=== PATIENT | female | born 1940 | race Caucasian/White ===

== ENCOUNTER → 2016-09-29 | Outpatient (CLI) | payer MEDICARE ==
[~2016-09-29] MED LIST: AMLO5TAB2 PO; IOHEXOL 180 MG/ML 10 ML VIAL. ONE; LISI40TA PO; METO25TA9 PO; OMEP40CA5 PO; PRAV80TA2 PO; PROM25TA10 PO; methylPREDNISolone ACETATE 40 MG/ML VIAL. ONE; methylPREDNISolone ACETATE 80 MG/ML VIAL. ONE
--- NOTE | 2016-09-29 23:58 | PAIN ---
DATE OF SERVICE: 09/29/2016 DIAGNOSES: Lumbar radiculopathy with lumbar degenerative disk disease and lumbar herniated disk. HISTORY OF PRESENT ILLNESS: The patient is a 76-year-old female who returns for followup status post lumbar epidural steroid injections x 2. The patient reports about 80% improvement overall after the last injection, still some right leg numbness, but the low back pain is almost completely gone. The patient reports that the leg has a constant tingling sensation and a burning sensation as well, only on the right side, mostly in the anterior lateral and medial aspect of the thigh, medial lower leg is cold to the ankle. The patient reports no new motor or sensory deficits, no new bowel or bladder incontinence, but still significant pain with standing, walking, changing positions, has not been awakening her from sleep at night, however, and although she is doing much better, she still has some significant pain and numbness in the right leg, again no new motor loss. PHYSICAL EXAMINATION: VITAL SIGNS: Today, the patient's blood pressure is 167/99, pulse ____, respirations 20, temperature 97.6 degrees Fahrenheit, weight is 123 pounds. GENERAL: The patient is awake, alert, oriented, appropriate, very pleasant demeanor. HEENT: Head shows normocephalic, atraumatic. Extraocular movements are intact, symmetrical. Oral cavity, mucous membranes are moist and pink. NECK: Shows anterior throat supple. CHEST: Shows normal on inspection. Breath sounds are clear to auscultation bilaterally. HEART: Shows S1 and S2 clear. ABDOMEN: Soft, nontender, nondistended. No palpable organomegaly is noted. No rebound or guarding demonstrated. BACK: Shows spine grossly midline. Lumbar paraspinous musculature shows some moderate tenderness with palpation, but normal lordotic curvature on inspection. No radiation of pain with palpation, normal muscle girth bilaterally. No tenderness over the sacrum or sacroiliac regions. The patient shows good rotation and motion both laterally as well as extension and flexion without exacerbation of pain in the lumbar spine. EXTREMITIES: Lower extremities show deep tendon reflexes 2+ in the patellar tendons, 1+ tendo calcaneus tendons are equal. Motor exam is strong with 5/5 dorsiflexion, extension, quadriceps and hamstring flexion and are symmetrical. Peripheral pulses are 1+ in the posterior tibial and dorsalis pedis pulses. No peripheral edema is noted. PLAN: Options were discussed with the patient. Patient's old chart was reviewed as her current medication regimen and updated. Current review of systems updated today as well. We will plan on a third lumbar epidural steroid injection with fluoroscopic guidance. Risks were again discussed including, but not limited to bleeding, infection, possibility of epidural hematoma and subsequent neurologic compromise, dural puncture, headaches, spinal cord and/or nerve damage, side effects of steroid medication and poor results regarding pain control. The patient understands and wishes to proceed. The patient will return to clinic in approximately 2 weeks for followup. She was counseled on her return appointment, activity level and side effects to be aware of. DIAGNOSIS: Lumbar radiculopathy with lumbar degenerative disk disease and lumbar herniated disk. PROCEDURE: Lumbar epidural steroid injection, translaminar approach at the L4-L5 level using C-arm fluoroscopic guidance under sterile prep and drape with local anesthesia. MEDICATIONS INJECTED: Depo-Medrol 120 mg plus 10 mL of preservative-free normal saline and 2 mL Isovue contrast. Condition is stable at discharge. The patient tolerated the procedure well, had no complications. RAYNA SINHA MD DR: ABILIO/osnido JOB#: [id number] / [id number]
== END ==
LOC: PNCL 10:02
PROVIDERS: ATTEND Anesthesiology
DX: M51.16 Intervertebral disc disorders with radiculopathy, lumbar region (principal)
CPT/HCPCS: 62323; J1030; J1040

== ENCOUNTER → 2017-07-12 | Outpatient (CLI) | payer MEDICARE ==
[~2017-07-12] MED LIST changes: +METO-239 PO; -METO25TA9 PO
--- NOTE | 2017-07-12 22:34 | PAIN ---
DATE OF SERVICE: 07/12/2017 DIAGNOSES: Lumbar radiculopathy with lumbar degenerative disk disease and lumbar herniated disk. HISTORY OF PRESENT ILLNESS: The patient is a 77-year-old female who returns for followup status post lumbar epidural steroid injections, last seen 09/29/2016. The patient did very well with about 80% improvement with her low back and bilateral lower extremity pain, right greater than left. The patient reports the pain began to return over the past 3-4 weeks, but that was doing very well as increased activity, greater ease and comfort without difficulty, sleeping well at night, now reports it is awaking her from sleep about 2-3 times. At night, she has to get out of bed or reposition and change positions. The patient also has significant pain across the low back, right side worse than the left into the lower extremity, mostly in the lateral anterior thigh and into the medial knee and lower leg on the right side, but only occasionally. The patient reports the pain is a 10 on a scale of 10 at its worst, 7 on average, is a 4 at its least, and is a 4 today. The patient reports it is becoming more constant, aching, burning, radiating and shooting. The patient reports no new motor or sensory deficits. No new bowel or bladder incontinence. PHYSICAL EXAMINATION: VITAL SIGNS: The patient's blood pressure 147/87, pulse 65, respirations 16, temperature 98.2 degrees Fahrenheit, height is 5 feet 7 inches, weight is 123 pounds. GENERAL: The patient is awake, alert, oriented, appropriate, very pleasant demeanor. HEENT: Shows normocephalic, atraumatic. Extraocular movements are intact and symmetrical. Oral cavity: Mucous membranes moist and pink. Dentition is intact. NECK: Shows anterior throat supple without palpable lymphadenopathy noted. Swallow reflex is symmetrical. CHEST: Shows normal on inspection. Breath sounds are clear to auscultation bilaterally. HEART: Shows S1 and S2 clear. ABDOMEN: Soft, nontender, nondistended. No palpable organomegaly. No rebound or guarding demonstrated. BACK: Shows spine grossly in the midline. Lumbar paraspinous musculature shows symmetrical on inspection. With palpation, shows some moderate tenderness in the middle and inferior aspect, slightly more on the right than the left, but without trigger points, without radiation or asymmetry. EXTREMITIES: Lower extremities show deep tendon reflexes 2+ in the patellar, 1+ tendo-calcaneus tendons, are equal. Motor exam is strong with 5/5 dorsiflexion, extension, quadriceps and hamstring flexion and are symmetrical. Peripheral pulses are 1+ posterior tibial bilaterally. No peripheral edema is noted. Options were discussed with the patient. The patient's old chart was reviewed as her current medication regimen and updated. Current review of systems is updated today as well and we will proceed with a lumbar epidural steroid injection today with fluoroscopic guidance. Risks were again discussed including, but not limited to bleeding, infection, possibility of epidural hematoma and subsequent neurologic compromise, dural puncture, headaches, spinal cord and/or nerve damage, side effects of steroid medication and poor results regarding pain control. The patient understands and wished to proceed. The patient will return to the clinic in approximately 2 weeks for followup, was counseled on return appointment, activity level and side effects to be aware of. DIAGNOSIS: Lumbar radiculopathy with lumbar degenerative disk disease, lumbar herniated disk. PROCEDURE: Lumbar epidural steroid injection in translaminar approach L4-L5 level using C-arm fluoroscopic guidance under sterile prep and drape using local anesthetic. Medication injected is a total of 120 mg of Depo-Medrol plus 10 mL of preservative-free normal saline and 2 mL of Isovue for contrast. CONDITION AT DISCHARGE: Stable. The patient tolerated procedure well, had no complications. RAYNA SINHA MD DR: ABILIO/sonido JOB#: [id number] / [id number]
== END | disposition home or self-care (01) ==
LOC: PNCL 09:47
PROVIDERS: ATTEND Anesthesiology
DX: M51.16 Intervertebral disc disorders with radiculopathy, lumbar region (principal); I10 Essential (primary) hypertension; M19.90 Unspecified osteoarthritis, unspecified site; Z98.41 Cataract extraction status, right eye; Z98.42 Cataract extraction status, left eye; Z87.891 Personal history of nicotine dependence; Z85.3 Personal history of malignant neoplasm of breast; Z90.710 Acquired absence of both cervix and uterus
CPT/HCPCS: 62323; J1030; J1040

== ENCOUNTER → 2017-07-26 | Outpatient (CLI) | payer MEDICARE ==
--- NOTE | 2017-07-26 18:53 | PAIN ---
DATE OF SERVICE: 07/26/2017 DIAGNOSES: Lumbar radiculopathy with lumbar degenerative disk disease and lumbar herniated disk. HISTORY OF PRESENT ILLNESS: The patient is a 77-year-old female who returns for a followup status post lumbar epidural steroid injection x 1. The patient reports about 75% improvement initially, but the pain is beginning to return after about 30% improvement in the low back and the bilateral lower extremities, mostly on the right side, anterior medial thigh, anterior lower leg into the knee with some numbness while sitting and across the low back as well, again more on the right side. The patient reports it is burning, cramping, aching with some numbness as well, but she has been increasing her daily activities with much greater ease and comfort initially, her last injection was on 07/12 over the past 2 weeks and has returned over the past few days. It is a 6 on a scale of 10 at its worst and on average and about a 4 at its least and is a 4 today. The patient reports no new motor or sensory deficits, no new bowel or bladder incontinence or other complaints. Reports it awakens her from sleep occasionally, but not every night. She sleeps about 3-4 hours at a time sporadically, but does not usually awaken from the pain in her back or leg. The patient reports no new changes. PHYSICAL EXAMINATION: VITAL SIGNS: The patient's blood pressure 163/90, pulse 75, respirations 16, temperature is 98.1 degrees Fahrenheit. Height is 5 feet 6 inches, weight is 122 pounds. GENERAL: The patient is awake, alert, oriented, appropriate, very pleasant demeanor. HEENT: Shows normocephalic, atraumatic. Extraocular movements are intact and symmetrical. Oral cavity shows mucous membranes moist and pink. Dentition is intact. NECK: Shows anterior throat supple without palpable lymphadenopathy noted. Swallow reflex is symmetrical. CHEST: Shows normal on inspection. Breath sounds are clear to auscultation bilaterally. HEART: Shows S1 and S2 clear. No murmurs auscultated. ABDOMEN: Soft, nontender, nondistended. No palpable organomegaly is noted. No rebound or guarding demonstrated. MUSCULOSKELETAL: Back shows spine grossly in the midline with a normal appearing thoracic kyphosis and lumbar lordotic curvatures. Lumbar paraspinous musculature shows moderate tenderness with palpation bilaterally in the lumbar paraspinous musculature, but only diffusely. The patient has good rotational motion of the lumbar spine, both laterally as well as extension and flexion without difficulty. Lower extremities show deep tendon reflexes at 2+ in the patellar, 1+ tendo-calcaneus tendons and are equal. Motor exam is strong with 5/5 dorsiflexion, extension, quadriceps and hamstring flexion and symmetrical. Peripheral pulses are 1+ posterior tibial and dorsalis pedis pulses. No peripheral edema is noted bilaterally. PLAN: Options were discussed with the patient and the patient's old chart was reviewed as her current medication regimen updated. Current review of systems updated today as well and we will proceed with a second lumbar epidural steroid injection today with fluoroscopic guidance. Risks were again discussed including, but not limited to bleeding, infection, possibility of epidural hematoma, subsequent neurological compromise, dural puncture, headaches, spinal cord and/or nerve damage, side effects of steroid medication and poor results regarding pain control. The patient understands and wishes to proceed. The patient will return to clinic in approximately 2 weeks for followup, was counseled on return appointment, activity level and side effects to be aware of. DIAGNOSES: Lumbar radiculopathy with lumbar degenerative disk disease, lumbar herniated disk. PROCEDURES: Lumbar epidural steroid injection in translaminar approach, L4-L5 level, using C-arm fluoroscopic guidance under sterile prep and drape using local anesthetic. MEDICATIONS INJECTED: A total of 120 mg Depo-Medrol plus 10 mL of preservative-free normal saline and 2 mL of Isovue for contrast. CONDITION AT DISCHARGE: Stable. The patient tolerated procedure well, had no complications. RAYNA SINHA MD DR: ABILIO/sonido JOB#: [id number] / [id number]
== END ==
LOC: PNCL 09:00
PROVIDERS: ATTEND Anesthesiology
DX: M51.16 Intervertebral disc disorders with radiculopathy, lumbar region (principal)
CPT/HCPCS: 62323; J1030; J1040